=== PATIENT | male | born 1980 | race Caucasian/White ===

== ENCOUNTER 2018-02-20 11:03 | Emergency (ER) | payer MEDICAID ==
[~2018-02-20] VITALS: Ht 177.8 cm; Wt 132.0 kg
[2018-02-20 11:09] VITALS: BP 110/75
[2018-02-20] MEDS ORDERED: LIDOCAINE 2%, 10ML INFIL ONE (11:30)
[2018-02-20] MEDS ORDERED: LIDOCAINE-MPF 1%, 2ML ONE (12:02)
== END 2018-02-20 13:04 | disposition home or self-care (01) ==
LOC: ED 12:58
DX: S91.312A Laceration without foreign body, left foot, initial encounter (principal); W26.8XXA Contact with other sharp object(s), not elsewhere classified, initial encounter; Y93.89 Activity, other specified; Y92.098 Other place in other non-institutional residence as the place of occurrence of the external cause; Y99.8 Other external cause status
CPT/HCPCS: 12041; 12042; 99284